=== PATIENT | female | born 1945 | race African-American/Black ===

== ENCOUNTER 2020-03-14 19:10 | Emergency (ER) | payer MEDICARE ==
[2020-03-14 19:39] VITALS: BP 117/63
[2020-03-14] MEDS ORDERED: ASPIRIN 325 MG TAB PO ONE (19:41)
--- NOTE | 2020-03-14 20:20 | XRay Report ---
CHEST 1 VIEW 03/14/2020 8:06 PM INDICATION / CLINICAL INFORMATION: Chest Pain. COMPARISON: Chest one view from 03/27/2018. FINDINGS: SUPPORT DEVICES: None. HEART / MEDIASTINUM: No significant abnormality. LUNGS / PLEURA: No significant pulmonary or pleural abnormality. No pneumothorax. ADDITIONAL FINDINGS: No significant additional findings. IMPRESSION: 1. No acute abnormality of the chest. Signer Name: Yosi Hart MD Signed: 03/14/2020 8:16 PM Workstation Name: [id number]
[2020-03-14 20:25] LABS: Basophils % (Auto) 0.4 % (0.0-1.8); Eosinophils # (Auto) 0.6 K/mm3 (0.0-0.4); Eosinophils % (Auto) 7.7 % (0.0-4.3); Hematocrit 38.6 % (30.3-42.9); Hemoglobin 12.8 gm/dl (10.1-14.3); Lymphocytes # (Auto) 1.8 K/mm3 (1.2-5.4); Lymphocytes % (Auto) 22.1 % (13.4-35.0); Mean Corpuscular HGB Conc 33 % (30-34); Mean Corpuscular Volume 98 fl (79-97); Monocytes # (Auto) 0.6 K/mm3 (0.0-0.8); Monocytes % (Auto) 6.6 % (0.0-7.3); Platelet Count 385 K/mm3 (140-440); Red Blood Count 3.96 M/mm3 (3.65-5.03); Red Cell Distribution Width 13.5 % (13.2-15.2)
[2020-03-14 20:48] LABS: BUN/Creatinine Ratio 25; Blood Urea Nitrogen 20 mg/dL (7-17); Calcium 9.4 mg/dL (8.4-10.2); Hemolysis Index 21
== END 2020-03-14 22:18 | disposition left against medical advice (07) ==
LOC: ED 19:10
DX: R07.89 Other chest pain (principal); Z53.21 Procedure and treatment not carried out due to patient leaving prior to being seen by health care provider
CPT/HCPCS: 36415; 71045; 80048; 84484; 85025; 93005